=== PATIENT | male | born 1955 | race Caucasian/White ===

== ENCOUNTER 2017-01-06 10:08 | Observation (INO) | payer BC, OTHER ==
[2017-01-06] MEDS ORDERED: Albuterol/Ipratropium 3.0-0.5 MG/3 ML Neb Soln NEB ONE (10:24)
[2017-01-06] MEDS ORDERED: methylPREDNISolone Sodium Succinate 125 MG/2 ML SDV IVPUSH ONE (10:33)
--- NOTE | 2017-01-06 10:33 | EDM.PDOC ---
ED HPI GENERAL MEDICAL PROBLEM - General Chief Complaint: Respiratory Problem Stated Complaint: SOB Time Seen by Provider: 01/06/17 10:13 Source of Information: Reports: Patient History Limitations: Reports: No Limitations - History of Present Illness INITIAL COMMENTS - FREE TEXT/NARRATIVE: HISTORY AND PHYSICAL: History of present illness: Patient is a 61-year-old male who presents to the emergency room today with complaints of shortness of breath 7 days. Patient states he was seen in the clinic for these symptoms and was placed on azithromycin and given Tessalon Perles at that time. It had any improvement since that time and states he has been unable to work due to his symptoms. He states that his symptoms are aggravated by exertion. He feels as though if he could "cough I would be able to clear something out of my lungs". Patient does have a history of asthma but does not take any medications for this. Denies any chest pain, diaphoresis, fever, nausea, vomiting or abdominal pain. No past history of smoking. Review of systems: As per history of present illness and below otherwise all systems reviewed and negative. Past medical history: As per history of present illness and as reviewed below otherwise noncontributory. Surgical history: As per history of present illness and as reviewed below otherwise noncontributory. Social history: No reported history of drug or alcohol abuse. Family history: As per history of present illness and as reviewed below otherwise noncontributory. Physical exam: Gen.: Well-developed and well-nourished 61-year-old male. Able to speak in full sentences without shortness of breath. Alert and oriented. HEENT: Atraumatic, normocephalic, pupils reactive, negative for conjunctival pallor or scleral icterus, mucous membranes moist, throat clear, neck supple, nontender, trachea midline. Lungs: Diminished lung sounds to posterior bases bilaterally otherwise clear, breath sounds equal bilaterally, chest nontender. Dyspneic with exertion otherwise breathes easy and even at rest. Heart: S1S2, regular, negative for clicks, rubs, or JVD. Abdomen: Soft, obese, nondistended, nontender. Negative for masses or hepatosplenomegaly. Negative for costovertebral tenderness. Pelvis: Stable nontender. Genitourinary: Deferred. Rectal: Deferred. Extremities: Atraumatic, negative for cords or calf pain. Neurovascular unremarkable. Neuro: Awake, alert, oriented. Cranial nerves II through XII unremarkable. Cerebellum unremarkable. Motor and sensory unremarkable throughout. Exam nonfocal. 1100- Patient reports that he does feel improvement with his shortness of breath after receiving the DuoNeb and Solu-Medrol. Still waiting for x-ray results. 1140- x-ray shows a mild infiltrate. Sats remained 93% on room air while sitting. Nursing staff is getting patient up to ambulate to see what his oxygen sats 2 with exertion. 1145- oxygen saturation is 90-91% with ambulating in the hallway. He does state he feels better after receiving the DuoNeb and Solu-Medrol. At this time and going tab up work and explained to the patient that he may need to stay overnight for IV antibiotics if he cannot get his oxygen saturation above 93%. Patient voices understanding and is agreeable to plan of care. 1200- Dr. Carvajal was consulted on this case. He is agreeable for admitting this patient to observation. Patient is aware and is agreeable to stay overnight. Diagnostics: 2 view chest x-ray Therapeutics: DuoNeb, Solu-Medrol Impression: Pneumonia Hypoxia Plan: Observation admission MedSurg Definitive disposition and diagnosis as appropriate pending reevaluation and review of above. Duration: Day(s): (7) Location: Reports: Chest - Related Data Allergies Allergy/AdvReac Type Severity Reaction Status Date / Time No Known Allergies Allergy Verified 11/11/13 08:23 Home Meds: Home Meds Aspirin 162 mg PO BRK 01/06/17 [History] Cinnamon Bark [Cinnamon] 1,000 mg PO BID 01/06/17 [History] Citalopram [Celexa] 40 mg PO DAILY 01/06/17 [History] Dabigatran Etexilate Mesylate [Pradaxa] 150 mg PO BID 01/06/17 [History] Glimepiride [Amaryl] 4 mg PO WITHBREAKFAST 01/06/17 [History] Lisinopril 10 mg PO DAILY 01/06/17 [History] Metoprolol Succinate [Toprol XL] 100 mg PO DAILY 01/06/17 [History] Nitroglycerin [Nitroglycerin Patch 0.2 MG/Hr] 5 mg TOP DAILY 01/06/17 [History] Pantoprazole [ProTONIX] 40 mg PO ACBREAKFAST 01/06/17 [History] Rosuvastatin [Crestor] 10 mg PO DAILY 01/06/17 [History] metFORMIN HCl [Metformin HCl] 1,000 mg PO BID 01/06/17 [History] Past Medical History Cardiovascular History: Reports: High Cholesterol, Hypertension, Stents - Infectious Disease History Infectious Disease History: Reports: Chicken Pox Social & Family History - Tobacco Use Smoking Status *Q: Never Smoker - Caffeine Use Caffeine Use: Reports: Coffee, Tea - Recreational Drug Use Recreational Drug Use: No ED ROS GENERAL - Review of Systems Review Of Systems: See Below ED EXAM, GENERAL - Physical Exam Exam: See Below (See dictation) Course - Vital Signs Last Recorded V/S: Last Vital Signs Temp 36.2 C 01/06/17 10:13 Pulse 64 01/06/17 10:13 Resp 22 H 01/06/17 10:13 BP 155/78 H 01/06/17 10:13 Pulse Ox 93 L 01/06/17 10:13 - Orders/Labs/Meds Orders: Active Orders 24 hr Category Date Time Status Admission Status [Patient Status] [ADT] Stat ADT 01/06/17 12:17 Active RT Aerosol Therapy [RC] ASDIRECTED Care 01/06/17 10:24 Active CMP [COMPREHENSIVE METABOLIC PN,CMP] [CHEM] Stat Lab 01/06/17 11:59 Received CULTURE BLOOD [BC] Stat Lab 01/06/17 11:59 Received CULTURE BLOOD [BC] Stat Lab 01/06/17 12:11 Received Azithromycin [Zithromax] 500 mg Med 01/06/17 12:26 Ordered Sodium Chloride 0.9% [Normal Saline] 250 ml IV ONETIME Levofloxacin/Dextrose 5%-Water [Levaquin in D5W 750 MG/ Med 01/06/17 11:53 Active 150 ML] 750 mg Premix Bag 1 bag IV ONETIME Blood Culture x2 Reflex Set [OM.PC] Stat Oth 01/06/17 11:52 Ordered Medication Orders Levofloxacin/Dextrose 750 mg/ (Premix) 150 mls @ 100 mls/hr IV ONETIME ONE Stop: 01/06/17 13:22 Last Admin: 01/06/17 12:20 Dose: 100 mls/hr Labs: Laboratory Tests 01/06/17 Range/Units 11:59 WBC 5.84 (4.0-11.0) K/uL RBC 4.17 L (4.50-5.90) M/uL Hgb 12.4 L (13.0-17.0) g/dL Hct 38.0 (38.0-50.0) % MCV 91.1 (80.0-98.0) fL MCH 29.7 (27.0-32.0) pg MCHC 32.6 (31.0-37.0) g/dL RDW Std Deviation 48.1 (28.0-62.0) fl RDW Coeff of Mckay 14 (11.0-15.0) % Plt Count 136 L (150-400) K/uL MPV 11.30 (7.40-12.00) fL Neut % (Auto) 56.5 (48.0-80.0) % Lymph % (Auto) 34.9 (16.0-40.0) % [place] % (Auto) 5.8 (0.0-15.0) % Eos % (Auto) 2.1 (0.0-7.0) % Baso % (Auto) 0.7 (0.0-1.5) % Neut # (Auto) 3.3 (1.4-5.7) K/uL Lymph # (Auto) 2.0 (0.6-2.4) K/uL [place] # (Auto) 0.3 (0.0-0.8) K/uL Eos # (Auto) 0.1 (0.0-0.7) K/uL Baso # (Auto) 0.0 (0.0-0.1) K/uL Nucleated RBC % 0.0 /100WBC Nucleated RBCs # 0 K/uL Meds: Medications Generic Name Dose Route Start Last Admin Trade Name Freq PRN Reason Stop Dose Admin Levofloxacin/Dextrose 750 mg/ 150 mls @ 100 mls/hr 01/06/17 11:53 01/06/17 12 :20 Premix IV 01/06/17 13:22 100 mls/hr ONETIME ONE Administration Discontinued Medications Generic Name Dose Route Start Last Admin Trade Name Freq PRN Reason Stop Dose Admin Albuterol/Ipratropium 3 ml 01/06/17 10:24 01/06/17 10:30 Duoneb 3.0-0.5 Mg/3 Ml NEB 01/06/17 10:25 3 ml ONETIME ONE Administration Methylprednisolone Sodium Succinate 125 mg 01/06/17 10:33 01/06/17 10:49 Solu-Medrol IVPUSH 01/06/17 10:34 125 mg ONETIME ONE Administration Departure - Departure Time of Disposition: 12:25 Disposition: Refer to Observation Clinical Impression: Pneumonia Qualifiers: Pneumonia type: due to unspecified organism Laterality: unspecified laterality Lung location: unspecified part of lung Qualified Code(s): J18.9 - Pneumonia, unspecified organism - Discharge Information Referrals: Moshe Sagastume MD [Primary Care Provider] - Forms: ED Department Discharge - My Orders Last 24 Hours: My Active Orders 01/06/17 10:24 RT Aerosol Therapy [RC] ASDIRECTED 01/06/17 11:52 Blood Culture x2 Reflex Set [OM.PC] Stat 01/06/17 11:53 Levofloxacin/Dextrose 5%-Water [Levaquin in D5W 750 MG/150 ML] 750 mg Premix Bag 1 bag IV ONETIME 01/06/17 11:59 CMP [COMPREHENSIVE METABOLIC PN,CMP] [CHEM] Stat CULTURE BLOOD [BC] Stat 01/06/17 12:11 CULTURE BLOOD [BC] Stat 01/06/17 12:17 Admission Status [Patient Status] [ADT] Stat 01/06/17 12:26 Azithromycin [Zithromax] 500 mg Sodium Chloride 0.9% [Normal Saline] 250 ml IV ONETIME - Assessment/Plan Last 24 Hours: My Active Orders 01/06/17 10:24 RT Aerosol Therapy [RC] ASDIRECTED 01/06/17 11:52 Blood Culture x2 Reflex Set [OM.PC] Stat 01/06/17 11:53 Levofloxacin/Dextrose 5%-Water [Levaquin in D5W 750 MG/150 ML] 750 mg Premix Bag 1 bag IV ONETIME 01/06/17 11:59 CMP [COMPREHENSIVE METABOLIC PN,CMP] [CHEM] Stat CULTURE BLOOD [BC] Stat 01/06/17 12:11 CULTURE BLOOD [BC] Stat 01/06/17 12:17 Admission Status [Patient Status] [ADT] Stat 01/06/17 12:26 Azithromycin [Zithromax] 500 mg Sodium Chloride 0.9% [Normal Saline] 250 ml IV ONETIME
--- NOTE | 2017-01-06 11:36 | CR ---
EXAMINATION: Two-view chest (PA and Lateral views). HISTORY: Dequan of breath. FINDINGS: The trachea is midline. The cardiomediastinal silhouette is within normal limits. There is mild bibas ilar atelectasis with a small right pleural effusion and likely trace left. Degenerative changes noted within the thoracic spine and shoulders bilaterally. IMPRESSION: 1. Small right pleural effusion with mild bibasal atelectasis/infiltrate.
[2017-01-06] MEDS ORDERED: Levofloxacin/Dextrose 5%-Water 750 MG in Premix Bag 1 BAG IV ONE (11:53)
[2017-01-06] MEDS ORDERED: Azithromycin 500 MG in Sodium Chloride 0.9% 250 ML IV ONE (12:26)
[2017-01-06 12:44] LABS: CHLORIDE,CL 113 mmol/L (98-110); SODIUM,NA 141 mmol/L (136-146)
[2017-01-06] MEDS ORDERED: Albuterol/Ipratropium 3.0-0.5 MG/3 ML Neb Soln NEB PRN (13:05)
--- NOTE | 2017-01-06 13:32 | PCM.HP ---
H&P History of Present Illness - General Date of Service: 01/06/17 Admit Problem/Dx: Admission Diagnosis/Problem Admission Diagnosis/Problem Pneumonia Source of Information: Patient History Limitations: Reports: No Limitations - History of Present Illness Initial Comments - Free Text/Narative: 61-year-old male with a past history of coronary artery disease, asthma, hypertension, obstructive sleep apnea presents to the emergency room today with a chief complaint of shortness of breath that has been persistent for the past week. As per the patient, he tells me that he went to a primary care provider a week ago who started him on azithromycin along with Tessalon Perles for a cough. However, he feels that his breathing status has not improved. He tells me that he has had to take work off for the past week secondary to his breathing issue. He tells me that he is unable to walk more than 30 feet without getting short of breath. He also complains of possible subjective fevers. However he tells me he did not check his temperature. In regards to his asthma, he tells me that he is on no medications for this. He hasn't had a breathing issue like this recently. Otherwise, he denies any chest pain, palpitations, nausea or vomiting. He denies any numbness or tingling. He denies any leg swelling. In the emergency room, this patient is found to have an oxygen saturation 93%. He was given a one-time dose of IV Solu-Medrol, along with the DuoNeb which the patient says really helped his breathing. Chest x-ray indicates a small right- sided pleural effusion. He is being admitted for outpatient antibiotic treatment failure. - Related Data Allergies/Adverse Reactions: Allergies Allergy/AdvReac Type Severity Reaction Status Date / Time No Known Allergies Allergy Verified 11/11/13 08:23 Home Medications: Home Meds Aspirin 162 mg PO BRK 01/06/17 [History] Cinnamon Bark [Cinnamon] 1,000 mg PO BID 01/06/17 [History] Citalopram [Celexa] 40 mg PO DAILY 01/06/17 [History] Dabigatran Etexilate Mesylate [Pradaxa] 150 mg PO BID 01/06/17 [History] Glimepiride [Amaryl] 4 mg PO WITHBREAKFAST 01/06/17 [History] Lisinopril 10 mg PO DAILY 01/06/17 [History] Metoprolol Succinate [Toprol XL] 100 mg PO DAILY 01/06/17 [History] Nitroglycerin [Nitroglycerin Patch 0.2 MG/Hr] 5 mg TOP DAILY 01/06/17 [History] Pantoprazole [ProTONIX] 40 mg PO ACBREAKFAST 01/06/17 [History] Rosuvastatin [Crestor] 10 mg PO DAILY 01/06/17 [History] metFORMIN HCl [Metformin HCl] 1,000 mg PO BID 01/06/17 [History] Past Medical History Cardiovascular History: Reports: High Cholesterol, Hypertension, Stents - Infectious Disease History Infectious Disease History: Reports: Chicken Pox Social & Family History - Tobacco Use Smoking Status *Q: Never Smoker - Caffeine Use Caffeine Use: Reports: Coffee, Tea - Recreational Drug Use Recreational Drug Use: No H&P Review of Systems - Review of Systems: Review Of Systems: See Below General: Reports: Other (Subjective fevers) HEENT: Denies: Sinus Congestion, Sore Throat, Vertigo Pulmonary: Reports: Other (See history of present illness) Cardiovascular: Denies: Chest Pain, Palpitations, Orthopnea, Syncope Gastrointestinal: Reports: Constipation Genitourinary: Reports: No Symptoms Musculoskeletal: Reports: No Symptoms Skin: Reports: No Symptoms Psychiatric: Reports: No Symptoms Neurological: Reports: No Symptoms Hematologic/Lymphatic: Reports: No Symptoms Immunologic: Reports: No Symptoms Exam - Exam Exam: See Below - Vital Signs Vital Signs: Last Vital Signs Temp 36.2 C 01/06/17 10:13 Pulse 64 01/06/17 10:13 Resp 22 H 01/06/17 10:13 BP 155/78 H 01/06/17 10:13 Pulse Ox 93 L 01/06/17 10:13 Weight: 124.738 kg - Exam Quality Assessment: DVT Prophylaxis General: Alert, Oriented HEENT: Conjunctiva Clear, EOMI, Hearing Intact, Mucosa Moist & [place], Nares Patent Neck: Supple, Trachea Midline. No: Carotid Bruit, JVD Lungs: Clear to Auscultation, Normal Respiratory Effort. No: Crackles, Stridor , Wheezing Cardiovascular: Regular Rate, Regular Rhythm, Normal S1, Normal S2 GI/Abdominal Exam: Normal Bowel Sounds, Soft, Non-Tender Extremities: Normal Inspection, No Pedal Edema, Normal Capillary Refill Skin: Warm, Intact Neurological: Cranial Nerves Intact Neuro Extensive - Mental Status: Alert, Oriented x3, Normal Mood/Affect Neuro Extensive - Motor, Sensory, Reflexes: CN II-XII Intact, Normal Gait - Patient Data Lab Results Last 24 hrs: Laboratory Results - last 24 hr 01/06/17 01/06/17 Range/Units 11:59 11:59 WBC 5.84 (4.0-11.0) K/uL RBC 4.17 L (4.50-5.90) M/uL Hgb 12.4 L (13.0-17.0) g/dL Hct 38.0 (38.0-50.0) % MCV 91.1 (80.0-98.0) fL MCH 29.7 (27.0-32.0) pg MCHC 32.6 (31.0-37.0) g/dL RDW Std Deviation 48.1 (28.0-62.0) fl RDW Coeff of Mckay 14 (11.0-15.0) % Plt Count 136 L (150-400) K/uL MPV 11.30 (7.40-12.00) fL Neut % (Auto) 56.5 (48.0-80.0) % Lymph % (Auto) 34.9 (16.0-40.0) % [place] % (Auto) 5.8 (0.0-15.0) % Eos % (Auto) 2.1 (0.0-7.0) % Baso % (Auto) 0.7 (0.0-1.5) % Neut # (Auto) 3.3 (1.4-5.7) K/uL Lymph # (Auto) 2.0 (0.6-2.4) K/uL [place] # (Auto) 0.3 (0.0-0.8) K/uL Eos # (Auto) 0.1 (0.0-0.7) K/uL Baso # (Auto) 0.0 (0.0-0.1) K/uL Nucleated RBC % 0.0 /100WBC Nucleated RBCs # 0 K/uL Sodium 141 (136-146) mmol/L Potassium 4.0 (3.5-5.1) mmol/L Chloride 113 H (98-110) mmol/L Carbon Dioxide 20 L (21-31) mmol/L BUN 14 (6.0-23.0) mg/dL Creatinine 0.7 (0.6-1.5) mg/dL Est Cr Clr Drug Dosing 125.24 mL/min Estimated GFR (MDRD) > 60.0 ml/min Glucose 126 H (60-110) mg/dL Calcium 8.9 (8.8-10.8) mg/dL Total Bilirubin 0.5 (0.1-1.5) mg/dL AST 28 (5-40) IU/L ALT 22 (8-54) IU/L Alkaline Phosphatase 70 (40-150) Total Protein 6.8 (6.0-8.0) g/dL Albumin 3.8 (3.4-4.8) g/dL Globulin 3.0 (2.0-3.5) g/dL Albumin/Globulin Ratio 1.3 (1.3-2.8) Result Diagrams: 01/06/17 11:59 01/06/17 11:59 *Q Meaningful Use (ADM) - VTE *Q VTE Criteria *Q: - Stroke *Q Stroke Criteria *Q: - AMI *Q AMI Criteria *Q: Problem List Initiated/Reviewed/Updated: Yes Orders Last 24hrs: Active Orders 24 hr Category Date Time Status Admission Status [Patient Status] [ADT] Stat ADT 01/06/17 12:17 Active Antiembolic Devices [RC] PER UNIT ROUTINE Care 01/06/17 13:00 Active Oxygen Therapy [RC] PRN Care 01/06/17 12:59 Active RT Aerosol Therapy [RC] ASDIRECTED Care 01/06/17 10:24 Active RT Aerosol Therapy [RC] ASDIRECTED Care 01/06/17 13:05 Active Up ad Annita [RC] ASDIRECTED Care 01/06/17 12:59 Active VTE/DVT Education [RC] PER UNIT ROUTINE Care 01/06/17 12:59 Active Vital Signs [RC] Q4H Care 01/06/17 12:59 Active Regular Diet [DIET] Diet 01/06/17 Dinner Active CBC WITH AUTO DIFF [HEME] AM Lab 01/07/17 05:11 Ordered CULTURE BLOOD [BC] Stat Lab 01/06/17 11:59 Received CULTURE BLOOD [BC] Stat Lab 01/06/17 12:11 Received Albuterol/Ipratropium [DuoNeb 3.0-0.5 MG/3 ML] Med 01/06/17 13:05 Active 3 ml NEB Q4HRRT PRN Aspirin Med 01/07/17 08:00 Active 162 mg PO BRK Citalopram [Celexa] Med 01/07/17 09:00 Active 40 mg PO DAILY Dabigatran [Pradaxa] Med 01/06/17 13:15 Active 150 mg PO BID Glimepiride [Amaryl] Med 01/07/17 08:00 Active 4 mg PO WITHBREAKFAST Lisinopril [Prinivil] Med 01/07/17 09:00 Active 10 mg PO DAILY Metoprolol Succinate [Toprol XL] Med 01/07/17 09:00 Active 100 mg PO DAILY Nitroglycerin [Nitro-Dur 0.2 MG/Hr] Med 01/07/17 09:00 Active 5 mg TOP DAILY Pantoprazole [ProTONIX] Med 01/07/17 07:30 Active 40 mg PO ACBREAKFAST Rosuvastatin [Crestor] Med 01/07/17 09:00 Active 10 mg PO DAILY metFORMIN HCl [Metformin HCl] Med 01/06/17 21:00 Active 1,000 mg PO BID Blood Culture x2 Reflex Set [OM.PC] Stat Oth 01/06/17 11:52 Ordered Sequential Compression Device [OM.PC] Per Unit Routine Oth 01/06/17 13:00 Ordered Resuscitation Status Routine Resus Stat 01/06/17 12:59 Ordered Medication Orders Albuterol/Ipratropium (Duoneb 3.0-0.5 Mg/3 Ml) 3 ml NEB Q4HRRT PRN PRN Reason: Shortness of Breath Aspirin (Aspirin) 162 mg PO BRK [facility] Citalopram Hydrobromide (Celexa) 40 mg PO DAILY [facility] Dabigatran (Pradaxa) 150 mg PO BID [facility] Glimepiride (Amaryl) 4 mg PO WITHBREAKFAST [facility] Lisinopril (Prinivil) 10 mg PO DAILY [facility] Metoprolol Succinate (Toprol Xl) 100 mg PO DAILY [facility] Nitroglycerin (Nitro-Dur 0.2 Mg/Hr) 5 mg TOP DAILY [facility] Non-Formulary Medication (Metformin Hcl [Metformin Hcl]) 1,000 mg PO BID [facility] Pantoprazole Sodium (Protonix) 40 mg PO ACBREAKFAST [facility] Rosuvastatin Calcium (Crestor) 10 mg PO DAILY [facility] Assessment/Plan Comment:: Assessment #1. Community-acquired pneumonia failing outpatient treatment #2. Shortness of breath secondary to #1 and a history of asthma #3. History of coronary artery disease, hypertension, obstructive sleep apnea, gastric reflux Plan Admit to the floor for observation When necessary oxygen as required Up ad annita. regular diet Continue Pradaxa which is a home medication. SCDs for DVT prophylaxis Duo nebs every 4 hours when necessary for shortness of breath/wheezing Levaquin IV 500 mg every 24 hours BMP ordered for tomorrow morning Anticipate discharge tomorrow morning
[2017-01-06] MEDS ORDERED: Non-Formulary Medication 1 Each (Metformin Hcl [Metformin Hcl] 1,000 MG) PO SCH (21:00)
[2017-01-07] MEDS ORDERED: Pantoprazole 40 MG Tab.CR PO SCH (07:30)
[2017-01-07] MEDS ORDERED: Aspirin 81 MG Tab.Chew PO SCH (08:00)
[2017-01-07] MEDS ORDERED: Glimepiride 2 MG Tab PO SCH (08:00)
[2017-01-07] MEDS ORDERED: Metoprolol Succinate 100 MG Tab.ER PO SCH (09:00)
[2017-01-07] MEDS ORDERED: Rosuvastatin 10 MG Tab PO SCH (09:00)
[2017-01-07] MEDS ORDERED: Citalopram 20 MG Tab PO SCH (09:00)
[2017-01-07] MEDS ORDERED: Lisinopril 5 MG Tab PO SCH (09:00)
[2017-01-07] MEDS ORDERED: Nitroglycerin 0.2 MG/HR Transdermal Patch TOP SCH (09:00)
== END 2017-01-06 14:50 | disposition left against medical advice (07) ==
LOC: MW.ED 10:08 → MW.MS 13:09
PROVIDERS: ADMIT Internal Medicine; ATTEND Internal Medicine
DX: J18.9 Pneumonia, unspecified organism (principal); I10 Essential (primary) hypertension; E78.00 Pure hypercholesterolemia, unspecified; I25.10 Atherosclerotic heart disease of native coronary artery without angina pectoris; G47.33 Obstructive sleep apnea (adult) (pediatric); K21.9 Gastro-esophageal reflux disease without esophagitis; Z79.82 Long term (current) use of aspirin; Z79.899 Other long term (current) drug therapy
CPT/HCPCS: 36415; 71020; 80053; 85025; 87040; 94640; 96365; 96375; 99285; G0378; J1956; J2930; 99284